=== PATIENT | female | born 1965 | race Caucasian/White ===

== ENCOUNTER 2021-03-26 23:23 | Inpatient (IN) | payer SELFPAY ==
[2021-03-27 01:00] VITALS: BMI 42.4
[2021-03-27] MEDS: Morphine 4 MG/ML VIAL SLOW IVP PRN ×6 (01:24→23:14)
[2021-03-27] MEDS ORDERED: Loperamide HCl 2 MG CAP PO PRN ×2 (02:18)
[2021-03-27] MEDS ORDERED: Ondansetron ODT 4 MG TAB PO PRN (02:18)
[2021-03-27] MEDS ORDERED: Ondansetron PF 4 MG/2 ML Vial IVP PRN (02:18)
[2021-03-27] MEDS: HYDROcodone/Acetaminophen 5/325 mg Tablet PO PRN ×2 (03:14→11:28)
[2021-03-27] MEDS ORDERED: Dextrose 5% in Water 1,000 ML IV PRN (05:53)
[2021-03-27] MEDS ORDERED: Dextrose 50% Abboject 50 ML SYRINGE SLOW IVP PRN (05:53)
[2021-03-27 06:27] LABS: #Eosinphils 0.4 thou/uL (0.0-0.7); #Lymphocytes 1.6 thou/uL (1.20-3.40); #Monocytes 0.5 thou/uL (0.11-0.59); #Neutrophils 4.2 thou/uL (1.40-6.50); %Basophils 0.1 % (0.0-1.0); %Eosinophils 5.5 % (0.0-10.0); %Lymphocytes 23.7 % (21.0-51.0); %Monocytes 7.1 % (0.0-10.0); %Neutrophils 63.6 % (42.0-75.0); Hemoglobin 11.8 g/dL (12.0-16.0); Mean Corpuscular Hemoglobin 32.2 pg (27.0-31.0); Mean Corpuscular Volume 97.4 fL (78.0-98.0); Mean Platelet Volume 8.2 fL (7.4-10.4); Platelet Count 210 thou/uL (130-400); RBC Distribution Width 11.4 % (11.5-14.5); Red Blood Cell (RBC) Count 3.68 mill/uL (4.20-5.40); White Blood Cell (WBC) Count 6.6 thou/uL (4.8-10.8)
[2021-03-27 06:49] LABS: Anion Gap 11 mmol/L (10-20); BUN (Urea Nitrogen) 5 mg/dL (9.8-20.1); Calc. Creatinine Clearance 146 mL/min (70-130); Calcium 8.4 mg/dL (7.8-10.44); Carbon Dioxide 23 mmol/L (22-29); Chloride 105 mmol/L (98-107); Glucose 152 mg/dL (70-105); Potassium 3.4 mmol/L (3.5-5.1); Sodium 136 mmol/L (136-145)
[2021-03-27] MEDS: Enoxaparin Sodium 40 MG/0.4 ML SYRINGE SC SCH (07:37)
[2021-03-27] MEDS: Ketorolac Tromethamine 30 MG/ML VIAL IVP PRN ×3 (07:39→21:27)
[2021-03-27] MEDS: HumaLOG 300 UNITS/3 ML VIAL SC PRN ×2 (12:08→21:28)
[2021-03-27] MEDS: methylPREDNISolone Sod Succ/PF 125 MG/2 ML VIAL IVP SCH (18:03)
[2021-03-27] MEDS: Acetaminophen 325 MG TAB PO PRN (21:26)
[2021-03-28] MEDS: Acetaminophen 325 MG TAB PO PRN (05:12)
[2021-03-28] MEDS: Ketorolac Tromethamine 30 MG/ML VIAL IVP PRN ×2 (05:13→12:24)
[2021-03-28] MEDS: HumaLOG 300 UNITS/3 ML VIAL SC PRN ×4 (05:15→21:37)
[2021-03-28 06:03] LABS: #Lymphocytes 0.8 thou/uL (1.20-3.40); #Monocytes 0.2 thou/uL (0.11-0.59); %Basophils 0.1 % (0.0-1.0); %Eosinophils 0.3 % (0.0-10.0); %Lymphocytes 10.3 % (21.0-51.0); %Monocytes 2.6 % (0.0-10.0); %Neutrophils 86.7 % (42.0-75.0); Hemoglobin 12.2 g/dL (12.0-16.0); Mean Corpuscular Hemoglobin 33.9 pg (27.0-31.0); Mean Corpuscular Volume 96.8 fL (78.0-98.0); Mean Platelet Volume 8.6 fL (7.4-10.4); Platelet Count 249 thou/uL (130-400); RBC Distribution Width 11.3 % (11.5-14.5); Red Blood Cell (RBC) Count 3.59 mill/uL (4.20-5.40); White Blood Cell (WBC) Count 8.1 thou/uL (4.8-10.8)
[2021-03-28 06:23] LABS: Anion Gap 14 mmol/L (10-20); BUN (Urea Nitrogen) 14 mg/dL (9.8-20.1); Calc. Creatinine Clearance 122 mL/min (70-130); Calcium 8.9 mg/dL (7.8-10.44); Carbon Dioxide 19 mmol/L (22-29); Chloride 107 mmol/L (98-107); Glucose 346 mg/dL (70-105); Potassium 4.5 mmol/L (3.5-5.1); Sodium 135 mmol/L (136-145)
[2021-03-28] MEDS: Enoxaparin Sodium 40 MG/0.4 ML SYRINGE SC SCH (07:52)
[2021-03-28] MEDS: Morphine 4 MG/ML VIAL SLOW IVP PRN ×3 (08:45→20:27)
[2021-03-28] MEDS: Cefepime 2 GM in Sodium Chloride 0.9% 100 ML IVPB SCH ×2 (10:11→21:37)
[2021-03-28] MEDS ORDERED: guaiFENesin/DM ER PO SCH ×3 (10:30→21:00)
[2021-03-28] MEDS ORDERED: Vancomycin HCl 1.25 GM in Sodium Chloride 0.9% 250 ML 250 ML IVPB SCH (11:00)
[2021-03-28 12:34] LABS: Fluid, pH - Pleural Fld 7.15 (7.60 - 7.66)
[2021-03-28 13:41] LABS: RBC Count-Automated (BF) 3539 /cu.mm; WBC/Nucleated-Auto (BF) 3057 uL
[2021-03-28 14:01] LABS: BF Color Yellow; Body Fluid Source Pleural Fluid; Clarity Hazy (Clear); Tube # EDTA
[2021-03-28 14:04] LABS: BF Segmented Neutrophils 49 %; Cell Count Non Hematic 19 %; Eosinophils 4 %; Lymphocytes 26 %
[2021-03-28] MEDS: methylPREDNISolone Sod Succ/PF 125 MG/2 ML VIAL IVP SCH (18:01)
[2021-03-28] MEDS: Mometasone 200 MCG/Formoterol 5 MCG 120 PUFF INHALER INH SCH (18:27)
[2021-03-28] MEDS ORDERED: Vancomycin HCl 750 MG in Sodium Chloride 0.9% 250 ML 250 ML IVPB SCH (20:00)
[2021-03-28] MEDS: Nicotine 21 MG PATCH TOP SCH (20:23)
[2021-03-28] MEDS ORDERED: Non-Formulary Item 1 EACH (Budesonide-Formoterol [Symbicort 160-4.5] 160 MG/4.5 MG Aer) INH SCH (21:00)
[2021-03-28] MEDS ORDERED: Polyethylene Glycol 3350 17 GM Packet PO PRN (21:11)
[2021-03-29] MEDS: Morphine 4 MG/ML VIAL SLOW IVP PRN ×6 (00:31→23:02)
[2021-03-29] MEDS: guaiFENesin/Codeine 200 mg/20 mg 10 ml Cup PO PRN ×4 (05:26→23:02)
[2021-03-29] MEDS: HumaLOG 300 UNITS/3 ML VIAL SC PRN ×4 (05:32→21:43)
[2021-03-29 05:38] LABS: #Lymphocytes 1.1 thou/uL (1.20-3.40); #Monocytes 0.2 thou/uL (0.11-0.59); #Neutrophils 8.3 thou/uL (1.40-6.50); %Basophils 0.4 % (0.0-1.0); %Eosinophils 0.1 % (0.0-10.0); %Lymphocytes 11.1 % (21.0-51.0); %Monocytes 2.5 % (0.0-10.0); %Neutrophils 85.9 % (42.0-75.0); Hemoglobin 11.7 g/dL (12.0-16.0); Mean Corpuscular HGB CONC 33.4 g/dL (32.0-36.0); Mean Corpuscular Hemoglobin 32.5 pg (27.0-31.0); Mean Corpuscular Volume 97.3 fL (78.0-98.0); Platelet Count 299 thou/uL (130-400); RBC Distribution Width 11.3 % (11.5-14.5); Red Blood Cell (RBC) Count 3.61 mill/uL (4.20-5.40); White Blood Cell (WBC) Count 9.7 thou/uL (4.8-10.8)
[2021-03-29 05:47] LABS: Hemoglobin A1c 7.1 % (4.0-6.0)
[2021-03-29 06:11] LABS: Anion Gap 12 mmol/L (10-20); BUN (Urea Nitrogen) 14 mg/dL (9.8-20.1); Calc. Creatinine Clearance 128 mL/min (70-130); Calcium 9.1 mg/dL (7.8-10.44); Carbon Dioxide 23 mmol/L (22-29); Chloride 106 mmol/L (98-107); Glucose 304 mg/dL (70-105); Potassium 4.3 mmol/L (3.5-5.1); Sodium 137 mmol/L (136-145)
[2021-03-29] MEDS: Mometasone 200 MCG/Formoterol 5 MCG 120 PUFF INHALER INH SCH ×2 (07:09→18:52)
[2021-03-29] MEDS: Cefepime 2 GM in Sodium Chloride 0.9% 100 ML IVPB SCH ×2 (09:19→21:35)
[2021-03-29] MEDS: Enoxaparin Sodium 40 MG/0.4 ML SYRINGE SC SCH (09:20)
[2021-03-29] MEDS: metFORMIN 500 MG TAB PO SCH (17:14)
[2021-03-29] MEDS: methylPREDNISolone Sod Succ/PF 125 MG/2 ML VIAL IVP SCH (17:14)
[2021-03-29] MEDS: Nicotine 21 MG PATCH TOP SCH (17:14)
[2021-03-29] MEDS ORDERED: VANCOMYCIN 1.75 GM/350 ML BAG 1.75 GM in Premix Bag 1 BAG IVPB SCH (18:00)
[2021-03-29] MEDS ORDERED: Lantus 1000 UNITS/10 ML VIAL SC SCH (21:00)
[2021-03-29] MEDS: Ketorolac Tromethamine 30 MG/ML VIAL IVP PRN (21:34)
[2021-03-30] MEDS: Ketorolac Tromethamine 30 MG/ML VIAL IVP PRN (04:42)
[2021-03-30] MEDS: guaiFENesin/Codeine 200 mg/20 mg 10 ml Cup PO PRN (04:52)
[2021-03-30] MEDS: HumaLOG 300 UNITS/3 ML VIAL SC PRN (04:53)
[2021-03-30] MEDS: Morphine 4 MG/ML VIAL SLOW IVP PRN (06:12)
[2021-03-30] MEDS: Mometasone 200 MCG/Formoterol 5 MCG 120 PUFF INHALER INH SCH (07:22)
[2021-03-30] MEDS: Enoxaparin Sodium 40 MG/0.4 ML SYRINGE SC SCH (08:01)
[2021-03-30] MEDS: metFORMIN 500 MG TAB PO SCH (08:01)
[2021-03-30] MEDS: Cefepime 2 GM in Sodium Chloride 0.9% 100 ML IVPB SCH (09:49)
[2021-03-30] MEDS: HYDROcodone/Acetaminophen 5/325 mg Tablet PO PRN (10:27)
[2021-03-30 12:13] VITALS: BP 129/83; TEMP 98.6
[2021-03-30] MEDS ORDERED: metFORMIN 500 MG TAB PO SCH (17:00)
== END 2021-03-30 13:00 | disposition home or self-care (01) | DRG 194 ==
LOC: T4-B 03-27 00:39 → T4-A 03-28 10:46
PROVIDERS: ADMIT Student in an Organized Health Care Education/Training Program; ATTEND Internal Medicine
PROC: 0W9B3ZZ Drainage of Left Pleural Cavity, Percutaneous Approach (ICD-10-PCS; principal; 2021-03-28)
DX: J18.9 Pneumonia, unspecified organism (principal); J91.8 Pleural effusion in other conditions classified elsewhere; J44.0 Chronic obstructive pulmonary disease with (acute) lower respiratory infection; Z68.41 Body mass index [BMI] 40.0-44.9, adult; J98.11 Atelectasis; E66.01 Morbid (severe) obesity due to excess calories; E11.65 Type 2 diabetes mellitus with hyperglycemia; F17.210 Nicotine dependence, cigarettes, uncomplicated; Z90.89 Acquired absence of other organs; Z98.51 Tubal ligation status
CPT/HCPCS: 36415; 36416; 71045; 71250; 80048; 82945; 83036; 83615; 83986; 84157; 85025; 85060; 87070; 87205; 88112; 89051; 94640; J0692; J1650; J1815; J1885; J2270; J2930; J3370; J3490; J7050; J7620